=== PATIENT | female | born 1985 | race Caucasian/White ===

== ENCOUNTER 2017-04-09 20:46 | Emergency (ER) | payer OTHER ==
[~2017-04-09] VITALS: Ht 161.9 cm; Wt 115.0 kg
[~2017-04-09 20:46] MED LIST: BCPILLS PO
[2017-04-09 20:49] VITALS: TEMP 36.8; Ht 161.9 cm; Wt 115.0 kg
[2017-04-09] MEDS ORDERED: ESCI10TA17 PO (21:25)
[2017-04-09 22:01] VITALS: BP 138/86; PULSE 90; O2SAT 98
--- NOTE | 2017-04-09 22:46 | EMERGENCY ROOM VISIT NOTE ---
History Report prepared by Leanne: Sara Nunez Under the Supervision of: Dr. Onelia Figueroa M.D. First contact with patient: 21:30 Chief Complaint: FOREIGNBODY ANY BODY PART Stated Complaint: CODOM STUCK IN VAGINA History of Present Illness The patient is a 32 year old female who presents to the Emergency Room with complaints of an episode of a possible foreign body in the vagina. The patient thinks that she has had a condom in her vagina for the past 24 hours. She states that they used a condom last night during sexual intercourse and afterwards they were unable to find the condom anywhere. She thinks that it is inside of her vagina. She has been trying to find it, but she has been unsuccessful. The patient denies any vaginal bleeding or abnormal vaginal discharge. She denies any chance of . Source of History: patient Onset: 24 hours [employer] Position: other (vagina) Quality: other (foreign body) Timing: other (episode) Note: Pt denies abnormal vaginal bleeding or discharge. Review of Systems See HPI for pertinent positives & negatives. A total of 10 systems reviewed and were otherwise negative. Past Medical & Surgical Medical Problems: (1) No significant active problems Family History Diabetes mellitus Social History Smoking Status: Current Every Day Smoker Smokeless Tobacco Use: No Alcohol Use: occasionally Marital Status: in relationship Occupation Status: employed Current/Historical Medications Scheduled Control Pills ( Control Pills), 1 TAB PO DAILY Escitalopram (Lexapro), 10 MG PO DAILY Allergies Coded Allergies: No Known Allergies (Unverified , 04/09/17) Physical Exam Vital Signs Date Time Temp Pulse Resp B/P (MAP) Pulse Ox O2 Delivery O2 Flow Rate FiO2 04/09/17 22:01 90 18 138/86 98 04/09/17 20:49 36.8 95 18 128/85 100 Room Air Physical Exam Vital signs reviewed. General: Well-appearing 32 year old female, in no significant distress. HEENT: No scleral icterus, PERRLA, neck supple. Atraumatic. Cardiovascular: Regular rate and rhythm, no extra sounds. Pulmonary: Clear to auscultation bilaterally, normal work of breathing. Abdomen: Soft, nontender, nondistended, positive bowel sounds. Pelvic: Normal exam, no foreign body visualized. Musculoskeletal: Atraumatic, no peripheral edema. Neurologic: Patient awake alert and oriented x 3, full strength in all 4 extremities. Cranial nerves 2 through 12 grossly intact. Skin: Warm, dry, no rash Medical Decision & Procedures ED Course 2129: Past medical records reviewed. The patient was evaluated in room C5. A complete history and physical examination was performed. At this time I discussed the results and treatment plan with the patient. I answered all pertaining questions that she had. She expressed understanding and verbalized agreement. The patient will be discharged home. Medical Decision This patient was evaluated and appeared to be in no significant distress. Pelvic exam was performed and no foreign body was identified. Patient was advised to follow-up with PALLET [employer]ER if symptoms develop. She will return to the ER for worsening of symptoms or any medical concerns. Medication Reconcilliation Current Medication List: was personally reviewed by me Blood Pressure Screening Patient's blood pressure: Normal blood pressure Impression Primary Impression: No foreign body found on evaluation Scribe Attestation The scribe's documentation has been prepared under my direction and personally reviewed by me in its entirety. I confirm that the note above accurately reflects all work, treatment, procedures, and medical decision making performed by me. Departure Information Dispostion Home / Self-Care Referrals No Doctor, Assigned (PCP) Forms HOME CARE DOCUMENTATION FORM, IMPORTANT VISIT INFORMATION, WORK / SCHOOL INSTRUCTIONS Patient Instructions My [facility] Additional Instructions Diagnosis: Evaluation for foreign body No foreign body identified. Please follow-up your [employer]LET AS[employer]ER for any medical concerns. Return to the ER for worsening of symptoms or any medical concerns.
== END 2017-04-09 22:02 | disposition home or self-care (01) ==
LOC: C.EDB 20:46 → C.EDC 22:02
DX: T19.2XXA Foreign body in vulva and vagina, initial encounter (principal); F17.210 Nicotine dependence, cigarettes, uncomplicated; X58.XXXA Exposure to other specified factors, initial encounter

== ENCOUNTER 2021-06-01 21:55 | Inpatient (IN) ==
[2021-06-01] MEDS ORDERED: OXYTOCIN 30 UNITS/500 ML BAG IV PRN (22:54)
[2021-06-01 23:28] LABS: Hematocrit (blood only) 40.5 % (37-47); Hemoglobin 13.9 g/dL (12.0-16.0); Mean Corpuscular Hemoglobin 29.4 pg (25-34); Mean Corpuscular Hgb Conc 34.3 g/dL (32-36); Mean Corpuscular Volume 85.6 fL (80-100); Mean Platelet Volume 10.4 fL (7.4-10.4); Platelet Count 245 K/uL (130-400); RDW Coefficient of Variation 14.4 % (11.5-14.5); RDW Standard Deviation 44.9 fL (36.4-46.3); Red Blood Count 4.73 M/uL (4.2-5.4); White Blood Count 8.46 K/uL (4.8-10.8)
--- NOTE | 2021-06-01 23:58 | History & Physical Report ---
Date of Service June 01, 2021 Assessment & Plan (1) SROM (spontaneous rupture of membranes): Plan: will observe for labor and then use Cytotec for cervical ripening Admission and Anticipated Discharge Date Admission Date: June 01, 2021 History of Present Illness Chief Complaint: spontaneous rupture of membranes at term Primary Care Provider: MACK PCP 36 F [id number] at 39 weeks with SROM clear fluid and no ongoing contractions. Covid is negative. GBS is negative. FHT Cat 1 with no contractions. course has been uncomplicated. 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; repeat No known health problems SAB (spontaneous ) 2019 Surgical History H/O colposcopy with cervical biopsy 2006 H/O dilation and curettage 2018 post SAB Hx of wisdom tooth extraction Social History Smoking Status: Never smoker Second Hand Exposure: No; Do You Dip or Chew Tobacco: No; Tobacco Cessation Education Requested by Patient: No Hx Alcohol Use: No Hx Substance Use: No Preferred Language: Omani Communication Ability: Effective News Production Assistant Required: No Beliefs That Will Affect Care: None marital status: Single Current Living Situation: Significant Other Current Living Situation Comment: Lives with boyfriend Other Information That Helps Us Care for You: No Feels Safe at Home: Yes Safety Concerns: Feels Safe At This Time Assistive Devices: None 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 Review of Systems All systems reviewed & are unremarkable except as noted in HPI & below Physical Exam Constitutional: WD/WN, vitals as above + obese and comfortable Eyes: PERRL, conjunctivae normal, anicteric sclerae Respiratory: normal respiratory effort, lungs clear to auscultation Cardiovascular: RRR, no murmur, no edema Skin: no rashes, warm and dry Neurologic: patellar DTR's 2+ bilat, sensation intact Psychiatric: A+Ox3, euthymic affect Genitourinary: Manual OB Exam: + cervical dilation fingertip, + cervical effacement 50%, + station high and + amniotic fluid clear OB Exam Monitor Tracing: + external FHT monitor used, + external uterine monitor used, + category I and + normal FHT variability Results & Data ([facility]) Vital Signs (Past 12 Hours) Vital Signs Temp Pulse Resp BP 06/01/21 23:15 36.6 C 06/01/21 22:27 90 122/62 06/01/21 22:21 93 H 141/103 H 06/01/21 22:17 93 H 18 141/103 H 06/01/21 22:15 94 H 136/95 Laboratory Results Laboratory Results - last 72 hr 06/01/21 06/01/21 06/01/21 22:56 22:56 23:17 WBC 8.46 RBC 4.73 Hgb 13.9 Hct 40.5 MCV 85.6 MCH 29.4 MCHC 34.3 RDW Std Deviation 44.9 RDW Coeff of [place] 14.4 Plt Count 245 MPV 10.4 COVID-19 [facility] SARS-CoV-2, RNA, NAAT NEGATIVE Code Status & VTE Plan VTE Prophylaxis Plan VTE Prophylaxis will be ordered: No
[2021-06-02] MEDS ORDERED: CALCIUM CARBONATE 500 MG CHEWABLE TAB PO PRN (02:23)
[2021-06-02] MEDS: miSOPROStoL 50 MCG TAB PO SCH ×5 (03:59→17:09)
[2021-06-02] MEDS ORDERED: BUTORPHANOL TARTRATE 1 MG/ML VIAL IV STA (07:52)
[2021-06-02] MEDS ORDERED: BUTORPHANOL TARTRATE 1 MG/ML VIAL ONE (10:30)
[2021-06-02] MEDS: LACTATED RINGER'S 1,000 ML IV PRN ×3 (10:38→21:45)
[2021-06-02] MEDS ORDERED: BUTORPHANOL TARTRATE 1 MG/ML VIAL IV ONE (10:45)
--- NOTE | 2021-06-02 12:11 | Labor Progress Brief Note ---
Date of Service June 02, 2021 Assessment & Plan Admission and Anticipated Discharge Date Admission Date: June 01, 2021 Physical Exam Genitourinary: Manual OB Exam: + cervical dilation fingertip, + cervical effacement (25%), + station high and + amniotic fluid clear OB Exam Monitor Tracing: + external FHT monitor used, + external uterine monitor used, + category I and + normal FHT variability will continue Cytotec for cervical ripening Results & Data ([facility]) Vital Signs (Past 12 Hours) Vital Signs Temp Pulse Resp BP 06/02/21 10:37 36.8 C 65 16 123/75 06/02/21 09:10 36.7 C 18 06/02/21 07:07 66 128/76 06/02/21 07:06 37.1 C 18 06/02/21 06:05 36.7 C 06/02/21 03:44 36.7 C 65 18 120/78
[2021-06-02] MEDS: BUTORPHANOL TARTRATE 1 MG/ML VIAL IV PRN ×2 (14:21→17:10)
[2021-06-02] MEDS ORDERED: OXYTOCIN 30 UNITS/500 ML BAG IV PRN (16:01)
--- NOTE | 2021-06-02 16:01 | Labor Progress Brief Note ---
Date of Service June 02, 2021 Assessment & Plan Admission and Anticipated Discharge Date Admission Date: June 01, 2021 Physical Exam Genitourinary: OB Exam Abdomen: + vertex and + estimated weight (8 lbs.) Manual OB Exam: + cervical dilation fingertip, + cervical effacement 60% and 70%, + station high and + amniotic fluid clear OB Exam Monitor Tracing: + external FHT monitor used, + external uterine monitor used, + category I and + normal FHT variability will start Oxytocin to augment contractions Results & Data ([facility]) Vital Signs (Past 12 Hours) Vital Signs Temp Pulse Resp BP 06/02/21 14:24 36.8 C 61 20 119/73 06/02/21 13:00 36.9 C 18 06/02/21 10:37 36.8 C 65 16 123/75 06/02/21 09:10 36.7 C 18 06/02/21 07:07 66 128/76 06/02/21 07:06 37.1 C 18 06/02/21 06:05 36.7 C
--- NOTE | 2021-06-02 18:43 | Labor Progress Brief Note ---
Date of Service June 02, 2021 Assessment & Plan (1) SROM (spontaneous rupture of membranes): Plan: Met pt and mother FHR;Cat1 Ctx 2-4mins Pit 3MU Admission and Anticipated Discharge Date Admission Date: June 01, 2021 Results & Data ([facility]) Vital Signs (Past 12 Hours) Vital Signs Temp Pulse Resp BP 06/02/21 17:43 36.6 C 68 18 126/83 06/02/21 17:08 75 18 128/78 06/02/21 16:27 36.8 C 61 18 118/66 06/02/21 14:24 36.8 C 61 20 119/73 06/02/21 13:00 36.9 C 18 06/02/21 10:37 36.8 C 65 16 123/75 06/02/21 09:10 36.7 C 18 06/02/21 07:07 66 128/76 06/02/21 07:06 37.1 C 18
[2021-06-02] MEDS ORDERED: fentaNYL citrate 100 MCG/2 ML VIAL ONE (19:18)
[2021-06-02] MEDS ORDERED: fentaNYL 2MCG/ML ROPIVACAINE 1.25MG/ML 100 ML BAG EPI ONE (19:18)
[2021-06-02] MEDS ORDERED: ePHEDrine sulfate 50 MG/ML AMP ONE (19:18)
[2021-06-02] MEDS ORDERED: BUPIVACAINE 0.25% 30 ML VIAL ONE (19:18)
[2021-06-02] MEDS ORDERED: SODIUM CHLORIDE 0.9% INJ 10 ML VIAL ONE (19:18)
--- NOTE | 2021-06-02 19:30 | Anesthesiology Consultation ---
Date of Service June 02, 2021 Assessment & Plan Chart Review Chart Review: Acceptable Risk for Surgery, Patient NOT seen in Pre Admission Testing and Acceptable Risk for Labor Epidural Consults Requested none ASA ASA3 Proposed Anesthesia Anesthesia Type: Labor Epidural and CSE History Height/Weight Height: 5 ft 4 in Weight: 117.48 kg Allergies Allergy/AdvReac Type Severity Reaction Status Date / Time No Known Allergies Allergy Verified 06/17/19 09:37 Medications Home Medications Medication Instructions Recorded Confirmed Last Taken vits no.124-ferrous fum 1 tab PO DAILY 06/01/21 06/01/21 06/01/21 08:00 27 mg iron-folic acid 800 mcg tablet ( Vitamin) Active Medications Generic Name Dose Route Start Last Admin Trade Name Freq PRN Reason Stop Dose Admin Butorphanol Tartrate 1 mg 06/02/21 12:09 06/02/21 17:10 Butorphanol Tartrate 1 Mg/Ml Vial IV 07/02/21 12:08 1 mg Q2HWA PRN Administration Pain Calcium Carbonate 1,000 mg 06/02/21 02:23 06/02/21 02:41 Calcium Carbonate 500 Mg Chewable Tab PO 07/02/21 02:22 1,000 mg Q6 PRN Administration Indigestion Lactated Ringer's 1,000 mls @ 125 mls/hr 06/01/21 22:54 06/02/21 18:21 Lr IV 06/03/21 22:53 125 mls/hr .Q8H PRN Administration L&D Protocol Protocol Oxytocin 30 units in 500 mls @ 5 mls/hr 06/02/21 16:01 06/02/21 18:20 Pitocin IV 06/04/21 16:00 0.3 units/hr .Q24H PRN 5 mls/hr Labor Induction/Augmentation Titration Protocol 0.3 UNITS/HR Misoprostol 50 mcg 06/02/21 00:00 06/02/21 17:09 Misoprostol 50 Mcg Tab PO 07/02/21 00:00 Not Given Q4 MARGAUX Past Medical History Medical History ERICK I (cervical intraepithelial neoplasia I) 2006 Depression No meds 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; repeat No known health problems SAB (spontaneous ) 2018 Exercise / Class Metabolic Activity II 4-5 Yardwork/Stairs/Walk up hill Past Surgical History Surgical History H/O colposcopy with cervical biopsy 2006 H/O dilation and curettage 2019 post SAB Hx of wisdom tooth extraction Past Anesthesia History No Hx of Anesthesia Complications and No Family Hx of Anesthesia Complications History of PONV No Hx of PONV and No Hx of Motion Sickness Social History Smoking Status: Never smoker Do You Dip or Chew Tobacco: No Hx Alcohol Use: No Hx Substance Use: No substance use type: does not use Physical Exam Vital Signs Last Vital Signs Temp 36.6 C 06/02/21 17:43 Pulse 75 06/02/21 19:24 Resp 18 06/02/21 17:43 BP 143/61 H 06/02/21 19:24 Testing Laboratory Results 06/01/21 23:17 Blood Type O Positive 06/02/21 08:18 Antibody Screen NEGATIVE 06/02/21 08:18
[2021-06-02] MEDS ORDERED: ePHEDrine sulfate 50 MG/ML AMP IV PRN (20:02)
[2021-06-02] MEDS ORDERED: diphenhydrAMINE 50 MG/ML VIAL IV PRN (20:02)
[2021-06-02] MEDS ORDERED: PROMETHAZINE HCL 25 MG in SODIUM CHLORIDE 0.9% 50 ML IV PRN (20:02)
[2021-06-02] MEDS ORDERED: ONDANSETRON INJ 2 MG/ML 2 ML VIAL IV PRN (20:02)
[2021-06-02] MEDS ORDERED: NALOXONE HCL 1 MG in SODIUM CHLORIDE 0.9% 1000ML 1,000 ML IV PRN (20:02)
[2021-06-02] MEDS ORDERED: NALOXONE HCL 0.4 MG/1 ML VIAL/CARP IV PRN (20:02)
[2021-06-02] MEDS ORDERED: NALBUPHINE HCL INJ 10 MG/ML AMP IV PRN (20:02)
--- NOTE | 2021-06-02 22:03 | Labor Progress Brief Note ---
Date of Service June 02, 2021 Assessment & Plan (1) SROM (spontaneous rupture of membranes): Plan: Pt received epidural analgesia FHR; CAT1 Ctx 2-3mins Pit ;11MU SROM over 24 hrs Afebrile VE; 2-3/50/-3 Admission and Anticipated Discharge Date Admission Date: June 01, 2021 Results & Data [facility] Vital Signs (Past 12 Hours) Vital Signs Temp Pulse Resp BP Pulse Ox 06/02/21 22:00 81 130/65 06/02/21 21:55 77 96 06/02/21 21:50 74 96 06/02/21 21:45 82 98 06/02/21 21:40 89 98 06/02/21 21:35 88 96 06/02/21 21:30 94 H 96 06/02/21 21:29 107 H 116/60 06/02/21 21:25 89 95 06/02/21 21:23 81 94 06/02/21 21:20 71 95 06/02/21 21:16 74 94 06/02/21 21:15 87 120/61 96 06/02/21 21:11 72 94 06/02/21 21:10 73 94 06/02/21 21:05 85 95 06/02/21 21:02 65 93 06/02/21 21:00 85 95 06/02/21 20:58 36.6 C 86 18 101/75 06/02/21 20:55 81 94 06/02/21 20:53 86 94 06/02/21 20:51 90 113/60 06/02/21 20:50 92 H 94 06/02/21 20:48 86 112/59 L 92 06/02/21 20:45 85 94 06/02/21 20:42 89 121/60 94 06/02/21 20:40 85 92 06/02/21 20:36 100 H 113/61 94 06/02/21 20:35 98 H 95 06/02/21 20:33 94 H 121/67 06/02/21 20:30 104 H 94 06/02/21 20:28 102 H 94 06/02/21 20:25 99 H 102/60 95 06/02/21 20:23 110 H 122/66 94 06/02/21 20:21 100 H 122/68 06/02/21 20:20 105 H 95 06/02/21 20:15 66 124/65 100 06/02/21 20:13 50 L 120/61 06/02/21 20:11 60 91/56 L 93 06/02/21 20:10 59 L 91 06/02/21 20:08 57 L 70/37 L 06/02/21 20:05 49 L 97 06/02/21 20:00 83 99 06/02/21 19:59 75 118/64 06/02/21 19:57 78 117/63 06/02/21 19:55 70 98 06/02/21 19:50 62 100 06/02/21 19:45 71 98 06/02/21 19:24 37.3 C 75 18 143/61 H 06/02/21 17:43 36.6 C 68 18 126/83 06/02/21 17:08 75 18 128/78 06/02/21 16:27 36.8 C 61 18 118/66 06/02/21 14:24 36.8 C 61 20 119/73 06/02/21 13:00 36.9 C 18 06/02/21 10:37 36.8 C 65 16 123/75
[2021-06-03] MEDS ORDERED: BUPIVACAINE 0.25% 30 ML VIAL ONE ×3 (00:48→10:02)
[2021-06-03] MEDS ORDERED: SODIUM CHLORIDE 0.9% INJ 10 ML VIAL ONE ×3 (00:48→10:02)
[2021-06-03] MEDS ORDERED: fentaNYL citrate 100 MCG/2 ML VIAL ONE ×4 (00:49→14:31)
--- NOTE | 2021-06-03 01:03 | Communication Note ---
Date of Service: June 03, 2021 At 0057, Pt. epidural cath. was bolused w/ 12 ml 0.17% bupivacaine + 100 mcgs fentanyl using incremental aspiration and injections. Vital signs stable.
[2021-06-03] MEDS ORDERED: NURSING L&D Epidural Breakthrough Pain Update ONE (01:05)
[2021-06-03] MEDS: fentaNYL 2MCG/ML ROPIVACAINE 1.25MG/ML 100 ML BAG EPI PRN ×3 (03:13→11:00)
--- NOTE | 2021-06-03 03:53 | Communication Note ---
Date of Service: June 03, 2021 At 0348, pt epidural cath was bolused w/ 12 ml 0.17% bupivacaine + 100 mcgs fentanyl w/ incremental injections and aspirations.Vs's stable.
[2021-06-03] MEDS: LACTATED RINGER'S 1,000 ML IV PRN ×2 (05:38→11:46)
--- NOTE | 2021-06-03 07:26 | Labor Progress Brief Note ---
Date of Service June 03, 2021 Assessment & Plan Admission and Anticipated Discharge Date Admission Date: June 01, 2021 Physical Exam Genitourinary: Manual OB Exam: + cervical dilation 6 cm, + cervical effacement 90%, + station -1 and + amniotic fluid clear OB Exam Monitor Tracing: + external FHT monitor used, + external uterine monitor used, + category I and + normal FHT variability Pitocin at 19 mU Results & Data ([facility]) Vital Signs (Past 12 Hours) Vital Signs Temp Pulse Resp BP Pulse Ox 06/03/21 07:20 73 100/59 L 98 06/03/21 07:15 77 95 06/03/21 07:10 64 97 06/03/21 07:05 71 97 06/03/21 07:04 82 116/57 L 06/03/21 07:00 71 98 06/03/21 06:55 72 96 06/03/21 06:50 81 95 06/03/21 06:48 77 103/56 L 06/03/21 06:45 79 99 06/03/21 06:40 74 97 06/03/21 06:35 71 95 06/03/21 06:33 62 100/58 L 06/03/21 06:30 65 95 06/03/21 06:25 62 97 06/03/21 06:20 81 98 06/03/21 06:18 70 99/57 L 06/03/21 06:15 108 H 97 06/03/21 06:10 68 96 06/03/21 06:05 88 96 06/03/21 06:03 74 102/58 L 06/03/21 06:00 72 96 06/03/21 05:55 97 H 96 06/03/21 05:50 86 97 06/03/21 05:45 83 96 06/03/21 05:40 87 97 06/03/21 05:35 85 97 06/03/21 05:33 88 98/55 L 06/03/21 05:30 73 98 06/03/21 05:25 69 97 06/03/21 05:20 76 98 06/03/21 05:18 71 106/58 L 06/03/21 05:15 68 99 06/03/21 05:10 74 97 06/03/21 05:05 66 97 06/03/21 05:04 36.6 C 72 18 99/51 L 06/03/21 05:00 90 95 06/03/21 04:55 74 95 06/03/21 04:50 91 H 106/69 96 06/03/21 04:45 97 H 98 06/03/21 04:40 76 95 06/03/21 04:35 83 94/51 L 95 06/03/21 04:30 77 97 06/03/21 04:25 90 96 06/03/21 04:22 73 94 06/03/21 04:20 90 94 06/03/21 04:19 84 95/55 L 06/03/21 04:16 70 94 06/03/21 04:15 70 94 06/03/21 04:10 99 H 94 06/03/21 04:05 69 97 06/03/21 04:02 68 112/54 L 06/03/21 04:00 78 94 06/03/21 03:55 91 H 97 06/03/21 03:54 74 115/65 06/03/21 03:52 67 113/59 L 06/03/21 03:50 80 116/57 L 97 06/03/21 03:48 82 126/74 06/03/21 03:45 82 96 06/03/21 03:42 73 94 06/03/21 03:40 82 96 06/03/21 03:35 78 97 06/03/21 03:31 72 113/56 L 06/03/21 03:30 72 96 06/03/21 03:25 81 96 06/03/21 03:20 94 H 95 06/03/21 03:15 79 96 06/03/21 03:11 71 116/61 06/03/21 03:10 70 97 06/03/21 03:07 74 100/53 L 06/03/21 03:05 68 94 06/03/21 03:04 72 93 06/03/21 03:02 65 114/59 L 06/03/21 03:00 72 95 06/03/21 02:57 79 94 06/03/21 02:56 37.5 C 75 112/58 L 06/03/21 02:55 89 96 06/03/21 02:52 74 111/57 L 06/03/21 02:50 69 99 06/03/21 02:45 71 96 06/03/21 02:43 68 117/56 L 06/03/21 02:40 71 96 06/03/21 02:35 71 121/59 L 97 06/03/21 02:32 63 115/57 L 06/03/21 02:30 71 96 06/03/21 02:26 81 132/68 06/03/21 02:25 81 96 06/03/21 02:22 72 121/68 06/03/21 02:20 83 98 06/03/21 02:17 72 120/64 06/03/21 02:15 64 96 06/03/21 02:11 73 135/65 06/03/21 02:10 71 96 06/03/21 02:06 76 119/66 06/03/21 02:05 71 96 06/03/21 02:02 75 109/59 L 06/03/21 02:00 67 98 06/03/21 01:57 73 117/60 93 06/03/21 01:55 74 96 06/03/21 01:51 65 106/52 L 06/03/21 01:50 67 97 06/03/21 01:47 68 115/53 L 06/03/21 01:45 63 97 06/03/21 01:42 70 126/63 06/03/21 01:40 63 97 06/03/21 01:37 81 118/66 06/03/21 01:36 80 92 06/03/21 01:35 75 96 06/03/21 01:32 68 115/66 06/03/21 01:30 76 96 06/03/21 01:26 64 133/65 94 06/03/21 01:25 71 95 06/03/21 01:22 79 110/59 L 06/03/21 01:20 83 96 06/03/21 01:17 85 93 06/03/21 01:16 78 120/71 06/03/21 01:15 70 96 06/03/21 01:10 84 120/68 96 06/03/21 01:09 103 H 116/58 L 94 06/03/21 01:06 84 117/66 06/03/21 01:05 79 95 06/03/21 01:04 69 116/59 L 06/03/21 01:02 74 115/59 L 06/03/21 01:00 72 97 06/03/21 00:59 77 119/60 06/03/21 00:55 69 96 06/03/21 00:50 61 95 06/03/21 00:49 69 94 06/03/21 00:46 72 124/65 06/03/21 00:45 71 98 06/03/21 00:41 78 93 06/03/21 00:40 65 95 06/03/21 00:35 69 96 06/03/21 00:30 81 96 06/03/21 00:29 72 126/63 94 06/03/21 00:25 70 99 06/03/21 00:24 70 93 06/03/21 00:20 76 95 06/03/21 00:16 78 123/61 06/03/21 00:15 84 99 06/03/21 00:10 72 97 06/03/21 00:05 67 97 06/03/21 00:00 79 124/56 L 97 06/02/21 23:55 73 97 06/02/21 23:50 85 97 06/02/21 23:45 76 98 06/02/21 23:40 72 97 06/02/21 23:35 77 97 06/02/21 23:31 70 113/58 L 06/02/21 23:30 65 97 06/02/21 23:25 77 96 06/02/21 23:20 71 97 06/02/21 23:15 78 96 06/02/21 23:14 78 107/63 06/02/21 23:10 82 97 06/02/21 23:05 83 97 06/02/21 23:00 86 96 06/02/21 22:59 37.2 C 95 H 18 112/68 94 06/02/21 22:55 87 95 06/02/21 22:53 85 94 06/02/21 22:50 89 96 06/02/21 22:47 88 94 06/02/21 22:45 79 110/66 96 06/02/21 22:40 83 95 06/02/21 22:35 89 95 06/02/21 22:30 83 95 06/02/21 22:29 88 114/59 L 06/02/21 22:25 76 95 06/02/21 22:23 77 94 06/02/21 22:20 82 96 06/02/21 22:16 86 116/57 L 06/02/21 22:15 86 95 06/02/21 22:10 81 97 06/02/21 22:05 79 96 06/02/21 22:00 81 130/65 95 06/02/21 21:55 77 96 06/02/21 21:50 74 96 06/02/21 21:45 82 98 06/02/21 21:40 89 98 06/02/21 21:35 88 96 06/02/21 21:30 94 H 96 06/02/21 21:29 107 H 116/60 06/02/21 21:25 89 95 06/02/21 21:23 81 94 06/02/21 21:20 71 95 06/02/21 21:16 74 94 06/02/21 21:15 87 120/61 96 06/02/21 21:11 72 94 06/02/21 21:10 73 94 06/02/21 21:05 85 95 06/02/21 21:02 65 93 06/02/21 21:00 85 95 06/02/21 20:58 36.6 C 86 18 101/75 06/02/21 20:55 81 94 06/02/21 20:53 86 94 06/02/21 20:51 90 113/60 06/02/21 20:50 92 H 94 06/02/21 20:48 86 112/59 L 92 06/02/21 20:45 85 94 06/02/21 20:42 89 121/60 94 06/02/21 20:40 85 92 06/02/21 20:36 100 H 113/61 94 06/02/21 20:35 98 H 95 06/02/21 20:33 94 H 121/67 06/02/21 20:30 104 H 94 06/02/21 20:28 102 H 94 06/02/21 20:25 99 H 102/60 95 06/02/21 20:23 110 H 122/66 94 06/02/21 20:21 100 H 122/68 06/02/21 20:20 105 H 95 06/02/21 20:15 66 124/65 100 06/02/21 20:13 50 L 120/61 06/02/21 20:11 60 91/56 L 93 06/02/21 20:10 59 L 91 10/01/21 20:08 57 L 70/37 L 06/02/21 20:05 49 L 97 06/02/21 20:00 83 99 06/02/21 19:59 75 118/64 06/02/21 19:57 78 117/63 06/02/21 19:55 70 98 06/02/21 19:50 62 100 06/02/21 19:45 71 98
--- NOTE | 2021-06-03 10:40 | Communication Note ---
Date of Service: June 03, 2021 Patient stated having increasing labor pains. The epidural was bolused with fentanyl 50mcg and 6mL of 0.125% bupivacaine. Patient stated having improved labor pains.
[2021-06-03] MEDS ORDERED: CITRIC ACID/SODIUM CITRATE 15 ML UDC ONE (13:17)
[2021-06-03] MEDS ORDERED: LIDOCAINE 2%/EPINEPHRINE 1:200,000 20 ML SDV ONE (13:22)
[2021-06-03] MEDS ORDERED: OXYTOCIN 10 UNITS/ML VIAL ONE (13:22)
--- NOTE | 2021-06-03 13:23 | Labor Progress Brief Note ---
Date of Service June 03, 2021 Assessment & Plan (1) SROM (spontaneous rupture of membranes): Plan: VE; Unchanged FHR; 170 Received IV bolus Afebrile Pt and Mother want a c/sec and do not wish to continue with inductionany longer discussed risk, benefits and complications of surgery consent is signed will proceed to c/sec Admission and Anticipated Discharge Date Admission Date: June 01, 2021 Results & Data ([facility]) Vital Signs (Past 12 Hours) Vital Signs Temp Pulse Resp BP Pulse Ox 06/03/21 13:18 71 114/56 L 06/03/21 13:15 79 96 06/03/21 13:13 77 91 06/03/21 13:10 75 96 06/03/21 13:05 67 98 06/03/21 13:03 71 122/66 06/03/21 13:00 37.0 C 91 H 18 95 06/03/21 12:56 63 94 06/03/21 12:55 63 95 06/03/21 12:50 76 99 06/03/21 12:48 64 122/59 L 06/03/21 12:45 68 96 06/03/21 12:40 75 98 06/03/21 12:35 62 96 06/03/21 12:33 61 129/68 06/03/21 12:30 85 18 98 06/03/21 12:25 65 96 06/03/21 12:20 63 95 06/03/21 12:19 61 129/68 06/03/21 12:18 78 94 06/03/21 12:15 63 96 06/03/21 12:10 62 95 06/03/21 12:05 72 98 06/03/21 12:04 61 122/67 06/03/21 12:00 62 96 06/03/21 11:55 70 95 06/03/21 11:50 62 96 06/03/21 11:48 59 L 124/63 06/03/21 11:45 37.4 C 65 18 97 06/03/21 11:40 69 96 06/03/21 11:35 66 98 06/03/21 11:33 66 129/65 06/03/21 11:32 77 93 06/03/21 11:30 65 20 96 06/03/21 11:25 62 95 06/03/21 11:20 59 L 97 06/03/21 11:18 67 129/70 06/03/21 11:15 62 95 06/03/21 11:10 61 95 06/03/21 11:05 69 99 06/03/21 11:03 59 L 127/62 06/03/21 11:01 58 L 94 06/03/21 11:00 37.2 C 55 L 20 96 06/03/21 10:55 58 L 95 06/03/21 10:50 62 98 06/03/21 10:49 60 115/56 L 06/03/21 10:47 62 94 06/03/21 10:45 75 96 06/03/21 10:40 62 96 06/03/21 10:35 59 L 96 06/03/21 10:33 58 L 109/60 06/03/21 10:30 63 18 96 06/03/21 10:27 75 94 06/03/21 10:25 58 L 95 06/03/21 10:20 73 95 06/03/21 10:18 62 115/68 06/03/21 10:15 61 95 06/03/21 10:10 62 95 06/03/21 10:05 69 96 06/03/21 10:03 67 142/62 H 06/03/21 10:00 69 97 06/03/21 09:55 72 100 06/03/21 09:50 81 102/54 L 96 06/03/21 09:45 60 97 06/03/21 09:44 64 94 06/03/21 09:40 61 95 06/03/21 09:39 59 L 93 06/03/21 09:35 60 97 06/03/21 09:33 60 120/60 93 06/03/21 09:30 54 L 20 94 06/03/21 09:27 59 L 94 06/03/21 09:25 61 95 06/03/21 09:20 51 L 95 06/03/21 09:18 50 L 111/62 06/03/21 09:15 56 L 97 06/03/21 09:10 56 L 96 06/03/21 09:09 57 L 93 06/03/21 09:05 68 96 06/03/21 09:04 54 L 116/64 06/03/21 09:00 37.3 C 62 20 97 06/03/21 08:55 57 L 96 06/03/21 08:50 65 96 06/03/21 08:48 67 94/57 L 06/03/21 08:45 69 96 06/03/21 08:40 70 96 06/03/21 08:35 66 98 06/03/21 08:34 68 108/59 L 06/03/21 08:30 64 18 97 06/03/21 08:25 62 95 06/03/21 08:20 64 97 06/03/21 08:19 65 109/56 L 06/03/21 08:15 62 95 06/03/21 08:10 60 98 06/03/21 08:05 61 96 06/03/21 08:00 60 18 97 06/03/21 07:55 65 99 06/03/21 07:50 63 97 06/03/21 07:45 79 97 06/03/21 07:40 62 97 06/03/21 07:35 94 H 97 06/03/21 07:30 65 18 98 06/03/21 07:25 67 97 06/03/21 07:20 73 100/59 L 98 06/03/21 07:15 77 95 06/03/21 07:10 64 97 06/03/21 07:05 71 97 06/03/21 07:04 82 116/57 L 06/03/21 07:00 36.7 C 71 18 98 06/03/21 06:55 72 96 06/03/21 06:50 81 95 06/03/21 06:48 77 103/56 L 06/03/21 06:45 79 99 06/03/21 06:40 74 97 06/03/21 06:35 71 95 06/03/21 06:33 62 100/58 L 06/03/21 06:30 65 95 06/03/21 06:25 62 97 06/03/21 06:20 81 98 06/03/21 06:18 70 99/57 L 06/03/21 06:15 108 H 97 06/03/21 06:10 68 96 06/03/21 06:05 88 96 06/03/21 06:03 74 102/58 L 06/03/21 06:00 72 96 06/03/21 05:55 97 H 96 06/03/21 05:50 86 97 06/03/21 05:45 83 96 06/03/21 05:40 87 97 06/03/21 05:35 85 97 06/03/21 05:33 88 98/55 L 06/03/21 05:30 73 98 06/03/21 05:25 69 97 06/03/21 05:20 76 98 06/03/21 05:18 71 106/58 L 06/03/21 05:15 68 99 06/03/21 05:10 74 97 06/03/21 05:05 66 97 06/03/21 05:04 36.6 C 72 18 99/51 L 06/03/21 05:00 90 95 06/03/21 04:55 74 95 06/03/21 04:50 91 H 106/69 96 06/03/21 04:45 97 H 98 06/03/21 04:40 76 95 06/03/21 04:35 83 94/51 L 95 06/03/21 04:30 77 97 06/03/21 04:25 90 96 06/03/21 04:22 73 94 06/03/21 04:20 90 94 06/03/21 04:19 84 95/55 L 06/03/21 04:16 70 94 06/03/21 04:15 70 94 06/03/21 04:10 99 H 94 06/03/21 04:05 69 97 06/03/21 04:02 68 112/54 L 06/03/21 04:00 78 94 06/03/21 03:55 91 H 97 06/03/21 03:54 74 115/65 06/03/21 03:52 67 113/59 L 06/03/21 03:50 80 116/57 L 97 06/03/21 03:48 82 126/74 06/03/21 03:45 82 96 06/03/21 03:42 73 94 06/03/21 03:40 82 96 06/03/21 03:35 78 97 06/03/21 03:31 72 113/56 L 06/03/21 03:30 72 96 06/03/21 03:25 81 96 06/03/21 03:20 94 H 95 06/03/21 03:15 79 96 06/03/21 03:11 71 116/61 06/03/21 03:10 70 97 06/03/21 03:07 74 100/53 L 06/03/21 03:05 68 94 06/03/21 03:04 72 93 06/03/21 03:02 65 114/59 L 06/03/21 03:00 72 95 06/03/21 02:57 79 94 06/03/21 02:56 37.5 C 75 112/58 L 06/03/21 02:55 89 96 06/03/21 02:52 74 111/57 L 06/03/21 02:50 69 99 06/03/21 02:45 71 96 06/03/21 02:43 68 117/56 L 06/03/21 02:40 71 96 06/03/21 02:35 71 121/59 L 97 06/03/21 02:32 63 115/57 L 06/03/21 02:30 71 96 06/03/21 02:26 81 132/68 06/03/21 02:25 81 96 06/03/21 02:22 72 121/68 06/03/21 02:20 83 98 06/03/21 02:17 72 120/64 06/03/21 02:15 64 96 06/03/21 02:11 73 135/65 06/03/21 02:10 71 96 06/03/21 02:06 76 119/66 06/03/21 02:05 71 96 06/03/21 02:02 75 109/59 L 06/03/21 02:00 67 98 06/03/21 01:57 73 117/60 93 06/03/21 01:55 74 96 06/03/21 01:51 65 106/52 L 06/03/21 01:50 67 97 06/03/21 01:47 68 115/53 L 06/03/21 01:45 63 97 06/03/21 01:42 70 126/63 06/03/21 01:40 63 97 06/03/21 01:37 81 118/66 06/03/21 01:36 80 92 06/03/21 01:35 75 96 06/03/21 01:32 68 115/66 06/03/21 01:30 76 96 06/03/21 01:26 64 133/65 94 06/03/21 01:25 71 95 06/03/21 01:22 79 110/59 L
[2021-06-03] MEDS ORDERED: LACTATED RINGER'S 1,000 ML IV SCH ×3 (13:30→15:30)
[2021-06-03] MEDS ORDERED: CITRIC ACID/SODIUM CITRATE 15 ML UDC PO SCH (14:00)
[2021-06-03] MEDS ORDERED: PHENYLEPHRINE 100MCG/ML 5ML SYR ONE (14:01)
[2021-06-03] MEDS ORDERED: ONDANSETRON INJ 2 MG/ML 2 ML VIAL ONE (14:01)
[2021-06-03] MEDS ORDERED: MoRPHine SULFATE PF 1 MG/ML 10 ML AMP/VIAL ONE (14:20)
[2021-06-03] MEDS ORDERED: METHYLERGONOVINE MALEATE 0.2 MG/ML AMP ONE (14:23)
[2021-06-03] MEDS ORDERED: KETAMINE 50 MG/5 ML SYRINGE ONE (14:36)
[2021-06-03] MEDS ORDERED: PROPOFOL IV EMULSION 10 MG/ML 20 ML VIAL IV ONE (14:42)
[2021-06-03] MEDS ORDERED: KETOROLAC 30 MG/ML VIAL ONE (15:15)
[2021-06-03] MEDS ORDERED: miSOPROStoL 200 MCG TAB ONE ×2 (15:15)
[2021-06-03 15:20] LABS: Base Excess Cord Venous Blood -4.1 mEq/L (-7.7-1.9); Cord Venous Blood HCO3 22 mmol/L (18.4-26.8); Cord Venous Blood PCO2 44 mmHg (30.4-57.2); Cord Venous Blood PO2 24 mmHg (14.1-43.3); Cord Venous Blood pH 7.32 (7.20-7.44)
[2021-06-03 15:26] LABS: Base Excess Cord Arterial Bld -6.2 mEq/L (-9-1.8); CO2 Cord Arterial Blood 50 mmHg (39.1-73.5); HCO3 Cord Arterial Blood 22 mmol/L (19.7-28.5); PO2 Cord Arterial Blood 16 mmHg (4.1-31.7); pH Cord Arterial Blood 7.25 (7.1-7.38)
[2021-06-03] MEDS ORDERED: SUPERCREAM 0.870% 15 GM JAR EXT PRN (15:26)
[2021-06-03] MEDS ORDERED: BENZOCAINE 20% AER SPR 82.5 GM CAN EXT PRN (15:26)
[2021-06-03] MEDS ORDERED: PROMETHAZINE HCL 25 MG in SODIUM CHLORIDE 0.9% 50 ML IV PRN (15:26)
[2021-06-03] MEDS ORDERED: HYDROCORTISONE ACETATE 25 MG SUPP PR PRN (15:26)
[2021-06-03] MEDS ORDERED: ONDANSETRON INJ 2 MG/ML 2 ML VIAL IV PRN ×2 (15:26→17:44)
[2021-06-03] MEDS ORDERED: MAGNESIUM HYDROXIDE SUSP 30 ML UDC PO PRN (15:26)
[2021-06-03] MEDS ORDERED: SENNA 8.6 MG TAB PO PRN (15:26)
[2021-06-03 15:29] LABS: O2 Saturation Cord Venous Bld < 60.0 % (<68)
[2021-06-03 15:31] LABS: Oxygen Sat Cord Arterial Blood < 60.0 % (<60)
--- NOTE | 2021-06-03 15:43 | Anesthesia Procedure Note ---
Date of Service June 03, 2021 Anesthesia Post Epidural Note Vital Signs Vital Signs: Temp Pulse Resp BP Pulse Ox 98.6 F 79 18 96/52 L 96 06/03/21 13:00 06/03/21 15:42 06/03/21 13:00 06/03/21 15:40 06/03/21 15:42 Pain Intensity Vaginal: Pain Intensity: 4 Notes Mental Status: alert / awake / arousable and participated in evaluation Nausea / Vomiting: adequately controlled Pain: adequately controlled Airway Patency, RR, SpO2: stable & adequate BP & HR: stable & adequate Hydration State: stable & adequate Neuraxial Anesthesia: was administered and sensory block is resolving Anesthetic Complications: no major complications apparent and Pt Satisfied with anesthetic care Epidural: Removed without complications and With tip intact
--- NOTE | 2021-06-03 15:43 | Anesthesiology Progress Note ---
Date of Service June 03, 2021 Anesthesia Post Procedure Vital Signs Vital Signs: Temp Pulse Resp BP Pulse Ox 06/03/21 15:40 86 96/52 L 06/03/21 15:37 80 95 06/03/21 15:32 75 94 06/03/21 15:30 81 91/50 L 06/03/21 15:27 77 95 06/03/21 15:26 75 109/56 L 06/03/21 13:47 90 115/60 06/03/21 13:45 109 H 96 06/03/21 13:43 110 H 94 06/03/21 13:40 101 H 110/57 L 95 06/03/21 13:35 129 H 96 06/03/21 13:33 134 H 109/59 L 06/03/21 13:30 129 H 95 06/03/21 13:25 75 97 06/03/21 13:20 85 96 06/03/21 13:18 71 114/56 L 06/03/21 13:15 79 96 06/03/21 13:13 77 91 06/03/21 13:10 75 96 06/03/21 13:05 67 98 06/03/21 13:03 71 122/66 06/03/21 13:00 98.6 F 91 H 18 95 06/03/21 12:56 63 94 06/03/21 12:55 63 95 06/03/21 12:50 76 99 06/03/21 12:48 64 122/59 L 06/03/21 12:45 68 96 06/03/21 12:40 75 98 06/03/21 12:35 62 96 06/03/21 12:33 61 129/68 06/03/21 12:30 85 18 98 06/03/21 12:25 65 96 06/03/21 12:20 63 95 06/03/21 12:19 61 129/68 06/03/21 12:18 78 94 06/03/21 12:15 63 96 06/03/21 12:10 62 95 06/03/21 12:05 72 98 06/03/21 12:04 61 122/67 06/03/21 12:00 62 96 06/03/21 11:55 70 95 06/03/21 11:50 62 96 06/03/21 11:48 59 L 124/63 06/03/21 11:45 99.3 F 65 18 97 06/03/21 11:40 69 96 06/03/21 11:35 66 98 06/03/21 11:33 66 129/65 06/03/21 11:32 77 93 06/03/21 11:30 65 20 96 06/03/21 11:25 62 95 06/03/21 11:20 59 L 97 06/03/21 11:18 67 129/70 06/03/21 11:15 62 95 06/03/21 11:10 61 95 06/03/21 11:05 69 99 06/03/21 11:03 59 L 127/62 06/03/21 11:01 58 L 94 06/03/21 11:00 99.0 F 55 L 20 96 06/03/21 10:55 58 L 95 06/03/21 10:50 62 98 06/03/21 10:49 60 115/56 L 06/03/21 10:47 62 94 06/03/21 10:45 75 96 06/03/21 10:40 62 96 06/03/21 10:35 59 L 96 06/03/21 10:33 58 L 109/60 06/03/21 10:30 63 18 96 06/03/21 10:27 75 94 06/03/21 10:25 58 L 95 06/03/21 10:20 73 95 06/03/21 10:18 62 115/68 06/03/21 10:15 61 95 06/03/21 10:10 62 95 06/03/21 10:05 69 96 06/03/21 10:03 67 142/62 H 06/03/21 10:00 69 97 06/03/21 09:55 72 100 06/03/21 09:50 81 102/54 L 96 06/03/21 09:45 60 97 06/03/21 09:44 64 94 06/03/21 09:40 61 95 06/03/21 09:39 59 L 93 06/03/21 09:35 60 97 06/03/21 09:33 60 120/60 93 06/03/21 09:30 54 L 20 94 06/03/21 09:27 59 L 94 06/03/21 09:25 61 95 06/03/21 09:20 51 L 95 06/03/21 09:18 50 L 111/62 06/03/21 09:15 56 L 97 06/03/21 09:10 56 L 96 06/03/21 09:09 57 L 93 06/03/21 09:05 68 96 06/03/21 09:04 54 L 116/64 06/03/21 09:00 99.1 F 62 20 97 06/03/21 08:55 57 L 96 06/03/21 08:50 65 96 06/03/21 08:48 67 94/57 L 06/03/21 08:45 69 96 06/03/21 08:40 70 96 06/03/21 08:35 66 98 06/03/21 08:34 68 108/59 L 06/03/21 08:30 64 18 97 06/03/21 08:25 62 95 06/03/21 08:20 64 97 06/03/21 08:19 65 109/56 L 06/03/21 08:15 62 95 06/03/21 08:10 60 98 06/03/21 08:05 61 96 06/03/21 08:00 60 18 97 06/03/21 07:55 65 99 06/03/21 07:50 63 97 06/03/21 07:45 79 97 06/03/21 07:40 62 97 06/03/21 07:35 94 H 97 06/03/21 07:30 65 18 98 06/03/21 07:25 67 97 06/03/21 07:20 73 100/59 L 98 06/03/21 07:15 77 95 06/03/21 07:10 64 97 06/03/21 07:05 71 97 06/03/21 07:04 82 116/57 L 06/03/21 07:00 98.1 F 71 18 98 06/03/21 06:55 72 96 06/03/21 06:50 81 95 06/03/21 06:48 77 103/56 L 06/03/21 06:45 79 99 06/03/21 06:40 74 97 06/03/21 06:35 71 95 06/03/21 06:33 62 100/58 L 06/03/21 06:30 65 95 06/03/21 06:25 62 97 06/03/21 06:20 81 98 06/03/21 06:18 70 99/57 L 06/03/21 06:15 108 H 97 06/03/21 06:10 68 96 06/03/21 06:05 88 96 06/03/21 06:03 74 102/58 L 06/03/21 06:00 72 96 06/03/21 05:55 97 H 96 06/03/21 05:50 86 97 06/03/21 05:45 83 96 06/03/21 05:40 87 97 06/03/21 05:35 85 97 06/03/21 05:33 88 98/55 L 06/03/21 05:30 73 98 06/03/21 05:25 69 97 06/03/21 05:20 76 98 06/03/21 05:18 71 106/58 L 06/03/21 05:15 68 99 06/03/21 05:10 74 97 06/03/21 05:05 66 97 06/03/21 05:04 97.9 F 72 18 99/51 L 06/03/21 05:00 90 95 06/03/21 04:55 74 95 06/03/21 04:50 91 H 106/69 96 06/03/21 04:45 97 H 98 06/03/21 04:40 76 95 06/03/21 04:35 83 94/51 L 95 06/03/21 04:30 77 97 06/03/21 04:25 90 96 06/03/21 04:22 73 94 06/03/21 04:20 90 94 06/03/21 04:19 84 95/55 L 06/03/21 04:16 70 94 06/03/21 04:15 70 94 06/03/21 04:10 99 H 94 06/03/21 04:05 69 97 06/03/21 04:02 68 112/54 L 06/03/21 04:00 78 94 06/03/21 03:55 91 H 97 06/03/21 03:54 74 115/65 06/03/21 03:52 67 113/59 L 06/03/21 03:50 80 116/57 L 97 06/03/21 03:48 82 126/74 06/03/21 03:45 82 96 06/03/21 03:42 73 94 06/03/21 03:40 82 96 06/03/21 03:35 78 97 06/03/21 03:31 72 113/56 L 06/03/21 03:30 72 96 06/03/21 03:25 81 96 06/03/21 03:20 94 H 95 06/03/21 03:15 79 96 06/03/21 03:11 71 116/61 06/03/21 03:10 70 97 06/03/21 03:07 74 100/53 L 06/03/21 03:05 68 94 06/03/21 03:04 72 93 06/03/21 03:02 65 114/59 L 06/03/21 03:00 72 95 06/03/21 02:57 79 94 06/03/21 02:56 99.5 F 75 112/58 L 06/03/21 02:55 89 96 06/03/21 02:52 74 111/57 L 06/03/21 02:50 69 99 06/03/21 02:45 71 96 06/03/21 02:43 68 117/56 L 06/03/21 02:40 71 96 06/03/21 02:35 71 121/59 L 97 06/03/21 02:32 63 115/57 L 06/03/21 02:30 71 96 06/03/21 02:26 81 132/68 06/03/21 02:25 81 96 06/03/21 02:22 72 121/68 06/03/21 02:20 83 98 06/03/21 02:17 72 120/64 06/03/21 02:15 64 96 06/03/21 02:11 73 135/65 06/03/21 02:10 71 96 06/03/21 02:06 76 119/66 06/03/21 02:05 71 96 06/03/21 02:02 75 109/59 L 06/03/21 02:00 67 98 06/03/21 01:57 73 117/60 93 06/03/21 01:55 74 96 06/03/21 01:51 65 106/52 L 06/03/21 01:50 67 97 06/03/21 01:47 68 115/53 L 06/03/21 01:45 63 97 06/03/21 01:42 70 126/63 06/03/21 01:40 63 97 06/03/21 01:37 81 118/66 06/03/21 01:36 80 92 06/03/21 01:35 75 96 06/03/21 01:32 68 115/66 06/03/21 01:30 76 96 06/03/21 01:26 64 133/65 94 06/03/21 01:25 71 95 06/03/21 01:22 79 110/59 L 06/03/21 01:20 83 96 06/03/21 01:17 85 93 06/03/21 01:16 78 120/71 06/03/21 01:15 70 96 06/03/21 01:10 84 120/68 96 06/03/21 01:09 103 H 116/58 L 94 06/03/21 01:06 84 117/66 06/03/21 01:05 79 95 06/03/21 01:04 69 116/59 L 06/03/21 01:02 74 115/59 L 06/03/21 01:00 72 97 06/03/21 00:59 77 119/60 06/03/21 00:55 69 96 06/03/21 00:50 61 95 06/03/21 00:49 69 94 06/03/21 00:46 72 124/65 06/03/21 00:45 71 98 06/03/21 00:41 78 93 06/03/21 00:40 65 95 06/03/21 00:35 69 96 06/03/21 00:30 81 96 06/03/21 00:29 72 126/63 94 06/03/21 00:25 70 99 06/03/21 00:24 70 93 06/03/21 00:20 76 95 06/03/21 00:16 78 123/61 06/03/21 00:15 84 99 06/03/21 00:10 72 97 06/03/21 00:05 67 97 06/03/21 00:00 79 124/56 L 97 06/02/21 23:55 73 97 06/02/21 23:50 85 97 06/02/21 23:45 76 98 06/02/21 23:40 72 97 06/02/21 23:35 77 97 06/02/21 23:31 70 113/58 L 06/02/21 23:30 65 97 06/02/21 23:25 77 96 06/02/21 23:20 71 97 06/02/21 23:15 78 96 06/02/21 23:14 78 107/63 06/02/21 23:10 82 97 06/02/21 23:05 83 97 06/02/21 23:00 86 96 06/02/21 22:59 99.0 F 95 H 18 112/68 94 06/02/21 22:55 87 95 06/02/21 22:53 85 94 06/02/21 22:50 89 96 06/02/21 22:47 88 94 06/02/21 22:45 79 110/66 96 06/02/21 22:40 83 95 06/02/21 22:35 89 95 06/02/21 22:30 83 95 06/02/21 22:29 88 114/59 L 06/02/21 22:25 76 95 06/02/21 22:23 77 94 06/02/21 22:20 82 96 06/02/21 22:16 86 116/57 L 06/02/21 22:15 86 95 06/02/21 22:10 81 97 06/02/21 22:05 79 96 06/02/21 22:00 81 130/65 95 06/02/21 21:55 77 96 06/02/21 21:50 74 96 06/02/21 21:45 82 98 06/02/21 21:40 89 98 06/02/21 21:35 88 96 06/02/21 21:30 94 H 96 06/02/21 21:29 107 H 116/60 06/02/21 21:25 89 95 06/02/21 21:23 81 94 06/02/21 21:20 71 95 06/02/21 21:16 74 94 06/02/21 21:15 87 120/61 96 06/02/21 21:11 72 94 06/02/21 21:10 73 94 06/02/21 21:05 85 95 06/02/21 21:02 65 93 06/02/21 21:00 85 95 06/02/21 20:58 97.9 F 86 18 101/75 06/02/21 20:55 81 94 06/02/21 20:53 86 94 06/02/21 20:51 90 113/60 06/02/21 20:50 92 H 94 06/02/21 20:48 86 112/59 L 92 10/01/21 20:45 85 94 06/02/21 20:42 89 121/60 94 06/02/21 20:40 85 92 06/02/21 20:36 100 H 113/61 94 06/02/21 20:35 98 H 95 06/02/21 20:33 94 H 121/67 06/02/21 20:30 104 H 94 06/02/21 20:28 102 H 94 06/02/21 20:25 99 H 102/60 95 06/02/21 20:23 110 H 122/66 94 06/02/21 20:21 100 H 122/68 06/02/21 20:20 105 H 95 06/02/21 20:15 66 124/65 100 06/02/21 20:13 50 L 120/61 06/02/21 20:11 60 91/56 L 93 06/02/21 20:10 59 L 91 06/02/21 20:08 57 L 70/37 L 06/02/21 20:05 49 L 97 06/02/21 20:00 83 99 06/02/21 19:59 75 118/64 06/02/21 19:57 78 117/63 06/02/21 19:55 70 98 06/02/21 19:50 62 100 06/02/21 19:45 71 98 06/02/21 19:24 99.1 F 75 18 143/61 H 06/02/21 17:43 97.9 F 68 18 126/83 06/02/21 17:08 75 18 128/78 06/02/21 16:27 98.2 F 61 18 118/66 Pain Intensity Vaginal: Pain Intensity: 4 Transfer of Care Handoff Completed per policy Notes Mental Status: alert / awake / arousable and participated in evaluation Nausea / Vomiting: adequately controlled Pain: adequately controlled Airway Patency, RR, SpO2: stable & adequate BP & HR: stable & adequate Hydration State: stable & adequate Neuraxial Anesthesia: was administered and sensory block is resolving Anesthetic Complications: no major complications apparent and Pt Satisfied with anesthetic care
[2021-06-03] MEDS ORDERED: OXYTOCIN 10 UNITS/ML VIAL IM ONE (16:04)
[2021-06-03] MEDS ORDERED: miSOPROStoL 200 MCG TAB PR ONE (16:05)
[2021-06-03] MEDS: OXYTOCIN 20 UNITS in LACTATED RINGER'S 1,000 ML IV SCH (17:11)
[2021-06-03] MEDS ORDERED: MoRPHine SULFATE PF 1 MG/ML 10 ML AMP/VIAL INT SPINAL ONE (17:44)
[2021-06-03] MEDS ORDERED: NALOXONE HCL 0.4 MG/1 ML VIAL/CARP IV PRN (17:44)
[2021-06-03] MEDS ORDERED: LACTATED RINGER'S 500 ML IV PRN (17:44)
[2021-06-03] MEDS ORDERED: NALOXONE HCL 0.08 MG in SYRINGE 1.8 ML IV PRN (17:44)
[2021-06-03] MEDS ORDERED: NALBUPHINE HCL INJ 10 MG/ML AMP IV PRN (17:44)
[2021-06-03] MEDS ORDERED: ePHEDrine sulfate 50 MG/ML AMP IV PRN (17:44)
[2021-06-03] MEDS ORDERED: diphenhydrAMINE 50 MG/ML VIAL IV PRN (17:44)
[2021-06-03] MEDS ORDERED: NALOXONE HCL 1 MG in SODIUM CHLORIDE 0.9% 1000ML 1,000 ML IV PRN (17:44)
[2021-06-03] MEDS ORDERED: MEPERIDINE HCL 25 MG/ML CARP/VIAL IV PRN (17:44)
[2021-06-03] MEDS ORDERED: NO NARCOTICS OR SEDATIVES SCH (17:45)
[2021-06-03] MEDS ORDERED: SODIUM CHLORIDE 0.9% 1000ML 1,000 ML IV SCH (17:45)
[2021-06-03] MEDS ORDERED: DC INTRASPINAL MORPHINE SCH (17:45)
[2021-06-03] MEDS: SIMETHICONE 80 MG CHEW PO SCH ×2 (18:02→21:18)
[2021-06-03] MEDS: DOCUSATE SODIUM 100 MG CAP PO SCH (21:18)
[2021-06-04] MEDS: KETOROLAC 30 MG/ML VIAL IV PRN ×2 (00:43→08:51)
[2021-06-04] MEDS: OXYTOCIN 20 UNITS in LACTATED RINGER'S 1,000 ML IV SCH ×2 (02:05→10:19)
[2021-06-04 06:28] LABS: Basophils # (auto) 0.01 K/uL (0-0.2); Basophils % (auto) 0.1 %; Eosinophils # (auto) 0.09 K/uL (0-0.5); Eosinophils % (auto) 0.7 %; Hematocrit (blood only) 33.5 % (37-47); Immature Granulocytes # (auto) 0.03 K/uL (0.00-0.02); Immature Granulocytes % (auto) 0.2 %; Lymphocytes % (auto) 10.4 %; Mean Corpuscular Hemoglobin 28.6 pg (25-34); Mean Corpuscular Hgb Conc 32.8 g/dL (32-36); Mean Corpuscular Volume 87.2 fL (80-100); Monocytes # (auto) 0.92 K/uL (0.11-0.59); Monocytes % (auto) 7.4 %; Neutrophils # (auto) 10.13 K/uL (1.4-6.5); Neutrophils % (auto) 81.2 %; Platelet Count 188 K/uL (130-400); RDW Standard Deviation 47.5 fL (36.4-46.3); Red Blood Count 3.84 M/uL (4.2-5.4); White Blood Count 12.48 K/uL (4.8-10.8)
[2021-06-04] MEDS: DOCUSATE SODIUM 100 MG CAP PO SCH ×2 (08:50→20:02)
[2021-06-04] MEDS: FERROUS SULFATE 325 MG TAB PO SCH (08:50)
[2021-06-04] MEDS: PRENATAL VITAMIN 1 TAB PO SCH (08:50)
[2021-06-04] MEDS: SIMETHICONE 80 MG CHEW PO SCH ×4 (08:50→20:01)
[2021-06-04] MEDS ORDERED: DIPHTHERIA/TETANUS/PERTUSSIS 0.5 ML SYR/VIAL IM ONE (09:00)
--- NOTE | 2021-06-04 11:05 | Obstetrical Progress Note ---
Date of Service June 04, 2021 Physical Exam abdomen soft and non-tender incision c/d/i no edema neg Heather's urine output good Constitutional WD/WN, vitals as above comfortable Results & Data ([facility]) Vital Signs (Past 12 Hours) Vital Signs Temp Pulse Resp BP Pulse Ox 06/04/21 08:10 36.5 C 68 18 110/80 99 06/04/21 06:10 16 98 06/04/21 05:20 36.8 C 74 16 88/69 L 98 06/04/21 04:00 16 96 06/04/21 03:15 16 94 06/04/21 02:10 16 94 06/04/21 01:05 18 93 06/04/21 00:40 18 93 06/04/21 00:15 36.8 C 76 18 99/61 L 93 06/03/21 23:15 18 89 L Laboratory Results Laboratory Results - last 72 hr 06/01/21 06/01/21 06/01/21 22:56 22:56 23:17 WBC 8.46 RBC 4.73 Hgb 13.9 Hct 40.5 MCV 85.6 MCH 29.4 MCHC 34.3 RDW Std Deviation 44.9 RDW Coeff of Frederick 14.4 Plt Count 245 MPV 10.4 Immature Gran % (Auto) Neut % (Auto) Lymph % (Auto) Stark % (Auto) Eos % (Auto) Baso % (Auto) Neut # (Auto) Lymph # (Auto) Stark # (Auto) Eos # (Auto) Baso # (Auto) Immature Gran # (Auto) Cord ABG pH Cord ABG pCO2 Cord ABG pO2 Cord ABG HCO3 Cord ABG Base Excess Cord ABG O2 Sat Cord VBG pH Cord VBG pCO2 Cord VBG pO2 Cord VBG HCO3 Cord VBG Base Excess Cord VBG O2 Sat Barometric Pressure Blood Gas Comments COVID-19 Eval [facility] SARS-[facility]-2, RNA, NAAT NEGATIVE Blood Type Antibody Screen 06/02/21 06/03/21 06/03/21 08:18 14:20 14:20 WBC RBC Hgb Hct MCV MCH MCHC RDW Std Deviation RDW Coeff of Frederick Plt Count MPV Immature Gran % (Auto) Neut % (Auto) Lymph % (Auto) Stark % (Auto) Eos % (Auto) Baso % (Auto) Neut # (Auto) Lymph # (Auto) Stark # (Auto) Eos # (Auto) Baso # (Auto) Immature Gran # (Auto) Cord ABG pH 7.25 Cord ABG pCO2 50 Cord ABG pO2 16 Cord ABG HCO3 22 Cord ABG Base Excess -6.2 Cord ABG O2 Sat < 60.0 Cord VBG pH 7.32 Cord VBG pCO2 44 Cord VBG pO2 24 Cord VBG HCO3 22 Cord VBG Base Excess -4.1 Cord VBG O2 Sat < 60.0 Barometric Pressure 732.8 732.8 Blood Gas Comments CHOWDARY CHOWDARY COVID-19 Eval Order SARS-CoV-2, RNA, NAAT Blood Type O Positive Antibody Screen NEGATIVE 06/04/21 06:02 WBC 12.48 H RBC 3.84 L Hgb 11.0 L Hct 33.5 L MCV 87.2 MCH 28.6 MCHC 32.8 RDW Std Deviation 47.5 H RDW Coeff of Frederick 15.0 H Plt Count 188 MPV 10.0 Immature Gran % (Auto) 0.2 Neut % (Auto) 81.2 Lymph % (Auto) 10.4 Stark % (Auto) 7.4 Eos % (Auto) 0.7 Baso % (Auto) 0.1 Neut # (Auto) 10.13 H Lymph # (Auto) 1.30 Stark # (Auto) 0.92 H Eos # (Auto) 0.09 Baso # (Auto) 0.01 Immature Gran # (Auto) 0.03 H Cord ABG pH Cord ABG pCO2 Cord ABG pO2 Cord ABG HCO3 Cord ABG Base Excess Cord ABG O2 Sat Cord VBG pH Cord VBG pCO2 Cord VBG pO2 Cord VBG HCO3 Cord VBG Base Excess Cord VBG O2 Sat Barometric Pressure Blood Gas Comments COVID-19 Eval Order SARS-CoV-2, RNA, NAAT Blood Type Antibody Screen
[2021-06-04] MEDS ORDERED: diphenhydrAMINE 50 MG/ML VIAL IV PRN (11:44)
[2021-06-04] MEDS ORDERED: diphenhydrAMINE Capsule 25 MG CAP PO PRN (11:44)
[2021-06-04] MEDS ORDERED: ONDANSETRON INJ 2 MG/ML 2 ML VIAL IV PRN (11:45)
[2021-06-04] MEDS: IBUPROFEN 600 MG TAB PO PRN ×2 (13:09→20:01)
[2021-06-04] MEDS: oxyCODONE/ACETAMINOPHEN 5mg/325mg TAB PO PRN ×2 (13:09→20:02)
[2021-06-04] MEDS ORDERED: bisacodyL 5 MG TABEC PO SCH (20:00)
[2021-06-05] MEDS: IBUPROFEN 600 MG TAB PO PRN ×3 (04:52→13:17)
[2021-06-05] MEDS: oxyCODONE/ACETAMINOPHEN 5mg/325mg TAB PO PRN ×3 (04:52→13:18)
[2021-06-05 07:14] LABS: Hematocrit (blood only) 32.3 % (37-47); Hemoglobin 10.5 g/dL (12.0-16.0)
--- NOTE | 2021-06-05 08:22 | Operative Report (OR) ---
DATE OF SERVICE: 06/02/2021 INDICATIONS FOR SURGERY: This is a 36-year-old , who presented to labor and delivery with spont aneous rupture of membrane. She received Cytotec and Pitocin. The patient went on to be 6 cm dilate d. She remained 6 cm dilated for over 5 hours. There was no change in dilation or change in station . The patient also was known to have impending macrosomia. Decision was therefore made to perform c esarean section. PREOPERATIVE DIAGNOSES: 1. Term premature rupture of membranes. 2. Failure to descend. 3. Impending macrosomia. 4. Prolonged rupture of membranes. POSTOPERATIVE DIAGNOSES: 1. Term premature rupture of membranes. 2. Failure to descend. 3. Impending macrosomia. 4. Prolonged rupture of membranes. SURGEON: Micheal Ernst MD. SERVICE STATION OPERATOR: Payam Painter MD. ESTIMATED BLOOD LOSS: 700 mL. INTRAVENOUS FLUIDS: 1 liter. URINE OUTPUT: 25 mL of clear urine at the end of procedure. COMPLICATIONS: None. FINDINGS: Live in cephalic presentation. Uterus and adnexa appeared grossly normal and unrem arkable. DRAINS: Pang catheter. PATHOLOGY: Placenta and cord. The umbilical cord had a true knot. ANESTHESIA: Epidural. DESCRIPTION OF PROCEDURE: The patient was taken to the operating room where she was prepped and drap ed in normal sterile fashion after timeout was called. A Pfannenstiel incision was made with a scalp el and carried down to the fascia. Fascia was incised in the midline and extended laterally on both sides with Mayos. Fascia was sharply dissected off the rectus abdominis muscle. Peritoneum was iden tified and entered sharply. An Jax retractor was used for retraction. Vesicouterine peritoneum w as sharply dissected off the lower segment of the uterus. Transverse low incision was made with a sc alpel and extended laterally on both sides with bandage scissors. 's head was delivered so was the rest of the body. Cord was clamped and cut. The true knot was noted. Cord blood was obtained. A specimen of the cord was transected for cord gases. Placenta was manually removed. Uterus was exteriorized and cleared of all clots and debris. Finding s of the uterus and abdomen were as dictated above. Uterus was closed in 2 layers with a Vicryl stit ch. There was good hemostasis. Vesicouterine peritoneum was reapproximated with plain suture. Uter us was returned to the abdomen. Peritoneum was reapproximated with plain suture. The fascia was gretta sed with Vicryl in a running fashion. Subcutaneous space was irrigated and a plain suture was used t o reapproximate the subcutaneous space. Skin was closed with dio. All instruments were removed from the abdomen including sponges, needles, and retractors. The patien t was sent to recovery in stable condition. Job ID: [id number]
[2021-06-05] MEDS: SIMETHICONE 80 MG CHEW PO SCH ×2 (08:48→13:17)
[2021-06-05] MEDS: DOCUSATE SODIUM 100 MG CAP PO SCH (08:49)
[2021-06-05] MEDS: PRENATAL VITAMIN 1 TAB PO SCH (08:50)
[2021-06-05] MEDS: FERROUS SULFATE 325 MG TAB PO SCH (08:50)
--- NOTE | 2021-06-05 10:27 | Obstetrical Progress Note ---
Date of Service June 05, 2021 Subjective Ambulation: ambulating normally Voiding: no voiding problems Passing Gas:: Yes Diet Tolerance:: regular diet Feeding Type:: breast feeding Current Pain Level(1-10): 0 doing well Physical Exam Constitutional WD/WN, vitals as above comfortable abdomen soft and non-tender fundus firm incision c/d/i for d/c today Results & Data ([facility]) Vital Signs (Past 12 Hours) Vital Signs Temp Pulse Resp BP Pulse Ox 06/05/21 07:43 36.4 C L 58 L 16 97/66 L 96 06/04/21 23:15 36.6 C 78 18 97/65 L Laboratory Results Laboratory Results - last 72 hr 06/03/21 06/03/21 06/04/21 14:20 14:20 06:02 WBC 12.48 H RBC 3.84 L Hgb 11.0 L Hct 33.5 L MCV 87.2 MCH 28.6 MCHC 32.8 RDW Std Deviation 47.5 H RDW Coeff of [place] 15.0 H Plt Count 188 MPV 10.0 Immature Gran % (Auto) 0.2 Neut % (Auto) 81.2 Lymph % (Auto) 10.4 [place] % (Auto) 7.4 Eos % (Auto) 0.7 Baso % (Auto) 0.1 Neut # (Auto) 10.13 H Lymph # (Auto) 1.30 [place] # (Auto) 0.92 H Eos # (Auto) 0.09 Baso # (Auto) 0.01 Immature Gran # (Auto) 0.03 H Cord ABG pH 7.25 Cord ABG pCO2 50 Cord ABG pO2 16 Cord ABG HCO3 22 Cord ABG Base Excess -6.2 Cord ABG O2 Sat < 60.0 Cord VBG pH 7.32 Cord VBG pCO2 44 Cord VBG pO2 24 Cord VBG HCO3 22 Cord VBG Base Excess -4.1 Cord VBG O2 Sat < 60.0 Barometric Pressure 732.8 732.8 Blood Gas Comments CHOWDARY RICARDA 06/05/21 07:03 WBC RBC Hgb 10.5 L Hct 32.3 L MCV MCH MCHC RDW Std Deviation RDW Coeff of [place] Plt Count MPV Immature Gran % (Auto) Neut % (Auto) Lymph % (Auto) [place] % (Auto) Eos % (Auto) Baso % (Auto) Neut # (Auto) Lymph # (Auto) [place] # (Auto) Eos # (Auto) Baso # (Auto) Immature Gran # (Auto) Cord ABG pH Cord ABG pCO2 Cord ABG pO2 Cord ABG HCO3 Cord ABG Base Excess Cord ABG O2 Sat Cord VBG pH Cord VBG pCO2 Cord VBG pO2 Cord VBG HCO3 Cord VBG Base Excess Cord VBG O2 Sat Barometric Pressure Blood Gas Comments
[2021-06-05] MEDS ORDERED: bisacodyL 10 MG SUPP PR PRN (15:26)
== END 2021-06-05 14:15 | disposition home or self-care (01) | DRG 788 ==
LOC: OPB 21:55 → 4S1 22:06 → 4S2 06-03 18:46